=== PATIENT | female | born 2000 | race Caucasian/White ===

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

== ENCOUNTER 2021-03-14 11:30 | Emergency (ER) | payer BC, OTHER, SELFPAY ==
[2021-03-14 12:09] VITALS: BP 154/63; PULSE 102; RESP 16; TEMP 36.5; O2SAT 96; BMI 30.9
--- NOTE | 2021-03-14 14:38 | ED_ITS ---
HPI - Female Genitourinary General Chief complaint: Urogenital-Female Stated complaint: LEFT SIDE ABD/BACK PAIN. HURTS TO TOUCH Time Seen by Provider: 03/14/21 14:00 Source: patient Mode of arrival: Ambulatory Limitations: no limitations History of Present Illness HPI Narrative: This is a 20-year-old female with left-sided flank pain. And suprapubic pain for approximately a week. Patient states she did not see anyone because she was not able to come to the emergency department she was out of town and did not feel she had other options that her insurance would cover. Patient denies any fevers she has felt warm she has had nausea but no active vomiting. She has any chest pain or shortness of breath. No cold cough or congestion. She has not had any new GI symptoms such as diarrhea constipation. No black or bloody stools. She has had some frequency but no dysuria. She has not any vaginal bleeding or discharge. She has had prior UTIs in the past and states this feels similar. Patient denies any daily medications. She denies any prior surgeries. No allergies to medications. Related Data Home Medications Medication Instructions Recorded Confirmed acetaminophen 650 mg 650 mg PO Q8HP PRN #0 08/13/16 tablet,extended release Previous Rx's Medication Instructions Recorded dextromethorphan polistirex 30 30 mg PO Q12H #148 ml 08/13/16 mg/5 mL oral susp ext.release 12hr (Delsym 12 hour) nitrofurantoin 100 mg PO BID 7 Days #0 cap 08/13/16 monohydrate/macrocrystals 100 mg capsule (Macrobid) ibuprofen 800 mg tablet 800 mg PO TID PRN #20 tab 04/11/18 ciprofloxacin HCl 500 mg tablet 500 mg PO BID #28 tab 03/14/21 ondansetron 4 mg disintegrating 4 mg PO Q6H PRN #5 tab 03/14/21 tablet tramadol 50 mg tablet (Ultram) 50 mg PO Q6H PRN #10 tab 03/14/21 Allergies Allergy/AdvReac Type Severity Reaction Status Date / Time No Known Drug Allergies Allergy Verified 03/14/21 12:08 Review of Systems Review of Systems ROS Unobtainable: All systems reviewed & are unremarkable except as noted in HPI and below Patient History Medical History (Updated 03/14/21 @ 14:38 by Hailey Kerns DO) Asthma tobacco type: vaping alcohol intake frequency: a few times a week Substance Use Type: does not use Exam Narrative Exam Narrative: GENERAL: Alert and oriented x three, female in [id number] distress. HEENT: Head normocephalic, atraumatic, EOMI, pupils reactive, face symmetric, moist mucous membranes NECK: Supple, full range of motion CARDIOVASCULAR: Regular rate and rhythm without murmurs, rubs or gallops. RESPIRATORY: Breath sounds equal bilaterally, no wheezes rales or rhonchi. ABDOMEN: Soft, moderate lower abdominal discomfort on the left. Normoactive bowel sounds all 4 quadrants. No guarding or rebound, rigidity, no mass : Positive for left CVA tenderness EXTREMITIES: Normal range of motion, no clubbing or edema. Neurovascularly intact NEUROLOGICAL: Cranial nerves II through XII grossly intact. Moving all extremities SKIN: Warm, dry, no petechiae, no rashes or lesions. Initial Vital Signs Initial Vital Signs: Vital Signs Temperature 97.7 F 03/14/21 12:09 Pulse Rate 102 H 03/14/21 12:09 Respiratory Rate 16 03/14/21 12:09 Blood Pressure 154/63 H 03/14/21 12:09 Pulse Oximetry 96 03/14/21 12:09 Course Orders Ordered: Discontinued Medications Ciprofloxacin (Ciprofloxacin 250 Mg Tablet) 500 mg PO NOW ONE Stop: 03/14/21 14:35 Last Admin: 03/14/21 14:42 Dose: 500 mg Documented by: WILLIMA Ketorolac Tromethamine (Ketorolac 30 Mg/Ml Vial) 30 mg IM NOW ONE Stop: 03/14/21 14:35 Last Admin: 03/14/21 14:42 Dose: 30 mg Documented by: WILLIAM Vital Signs Vital signs: Vital Signs - 8 hr 03/14/21 15:05 Temperature 98.4 F Pulse Rate 83 Respiratory Rate 16 Blood Pressure 102/58 L Pulse Oximetry 99 MDM - Female Genitourinary Lab Data Labs: Point of Care Testing Test Results Negative Urine Dip Bedside Urine Glucose Negative Bedside Urine Bilirubin - Negative Bedside Urine Ketone - Negative Urine Specific [place] 1.025 Bedside Urine Occult Blood ++ Bedside Urine pH 6 Bedside Urine Protein ++ 100 Bedside Urine Urobilinogen - Negative Bedside Urine Nitrite + Positive Bedside Urine Leukocytes ++ 125 Esterase MDM Narrative Medical decision making narrative: This is a 20-year-old female with a clinical exam positive for left flank pain, positive UTI with nitrates and symptoms consistent with pyelonephritis. Patient was given a shot of Toradol for pain control. Her 1st dose of antibiotics here in the department which she was able to tolerate. 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 We discussed she should feel better in the next 12-24 hours but not necessarily normal. She was asked to return if she was worsening or not able to keep her antibiotics down. All questions answered. Patient was also given a short course antinausea medicine and pain medication she is quite uncomfortable. Discharge Plan Departure Patient Disposition: Home Clinical Impression: Pyelonephritis Instructions: DI for Kidney Infection Activity Restrictions/Additional Instructions: Follow-up in the next 2-3 days for recheck if your symptoms are not improving. Take antibiotics until completely gone. Take antinausea medication as needed. Take pain medication as prescribed. This medication can make you sleepy do not drive, perform hazardous activities or make any major decisions while taking it. This medication will make you constipated please take a stool softener once to twice daily until stools are soft and regular. You may take ibuprofen up to 800 mg every 8 hours with this as well as Tylenol up to a 1000 mg every 8 hours. Prescription to [facility] in [place]. Return for fevers, rapidly worsening flank, abdominal pain, persistent vomiting, lightheadedness or passing out, black or bloody stools, inability urinate or other new or concerning symptoms. Prescriptions: New ciprofloxacin HCl 500 mg tablet 500 mg PO BID Qty: 28 RF: 0 tramadol [Ultram] 50 mg tablet 50 mg PO Q6H PRN (Reason: pain) Qty: 10 RF: 0 ondansetron 4 mg tablet,disintegrating 4 mg PO Q6H PRN (Reason: nausea and vomiting) Qty: 5 RF: 0 No Action acetaminophen 650 MG tablet extended release 650 mg PO Q8HP PRNQty: 0 RF: 0 nitrofurantoin monohyd/m-cryst [Macrobid] 100 MG capsule 100 mg PO BID 7 Days Qty: 0 RF: 0 dextromethorphan polistirex [Delsym 12 hour] 30 MG/5 ML suspension,extended rel 12 hr 30 mg PO Q12H Qty: 148 RF: 0 ibuprofen 800 mg tablet 800 mg PO TID PRN (Reason: pain) Qty: 20 RF: 0
[2021-03-14] MEDS: CIPROFLOXACIN 250 MG TABLET 500 MG PO (14:42)
[2021-03-14] MEDS: KETOROLAC 30 MG/ML VIAL IM (14:42)
[2021-03-14 15:05] VITALS: BP 102/58; PULSE 83; RESP 16; TEMP 36.9; O2SAT 99
== END 2021-03-14 15:13 | disposition home or self-care (01) ==
PROVIDERS: Emergency Provider Emergency Medicine
DX: N12 Tubulo-interstitial nephritis, not specified as acute or chronic (principal)
CPT/HCPCS: 81003; 81025; 96372; 99283; J1885

== ENCOUNTER 2021-06-15 12:43 | Emergency (ER) | payer BC, OTHER, SELFPAY ==
[2021-06-15] VITALS (12 sets, daily range): BP systolic 81–124; BP diastolic 51–82; PULSE 83–104; RESP 16–18; TEMP 36.3; O2SAT 97–100; BMI 33.3
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
[2021-06-15] MEDS: SODIUM CHLORIDE 0.9% 1,000 ML 1000 ML IV (15:27)
[2021-06-15] MEDS: diphenhydrAMINE 50 MG/ML VIAL 25 MG IV (15:27)
[2021-06-15] MEDS: DEXAMETHASONE 10 MG/ML VIAL IV (15:27)
[2021-06-15] MEDS: KETOROLAC 30 MG/ML VIAL IV (15:27)
[2021-06-15] MEDS: METOCLOPRAMIDE 10 MG/2 ML INJ IV (15:28)
[2021-06-15] MEDS: ACETAMINOPHEN 325 MG TABLET 975 MG PO (15:28)
== END 2021-06-15 17:07 | disposition home or self-care (01) ==
PROVIDERS: Emergency Provider Nurse Practitioner Critical Care Medicine
DX: S06.0X0A Concussion without loss of consciousness, initial encounter (principal); W22.8XXA Striking against or struck by other objects, initial encounter
CPT/HCPCS: 36415; 81003; 81025; 96361; 96374; 96375; 99284; J1100; J1200; J1885; J2765

== ENCOUNTER 2024-10-25 19:41 | Emergency (ER) | payer BC, SELFPAY ==
[2024-10-25] VITALS (33 sets, daily range): BP systolic 107–238; BP diastolic 55–98; PULSE 67–111; RESP 12–33; O2SAT 97–100; BMI 29.4
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
--- NOTE | 2024-10-25 19:59 | EKG_ITS ---
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
[2024-10-25] MEDS: ALBUTEROL 2.5 MG/3 ML NEB (ADULT) INH (20:03)
[2024-10-25 20:11] LABS: Add Manual Diff / Slide Review NO; Basophils Absolute Auto 0 /uL (0-100); Basophils Percent Auto 0.4 % (0-2); Eosinophils Absolute Auto 100 /uL (0-450); Hematocrit 37.2 % (36-46); Hemoglobin 12.7 g/dL (12.0-16.0); Lymphocytes Absolute Auto 2500 /uL (1100-4500); Lymphocytes Percent Auto 28.2 % (25-40); Mean Corpuscular HGB Conc 34.1 % (30-36); Mean Corpuscular Hemoglobin 31.1 PG (26-34); Mean Corpuscular Volume 91.2 fL (80-100); Monocytes Absolute Auto 500 /uL (0-900); Monocytes Percent Auto 5.8 % (3-14); Neutrophils Absolute Auto 5700 /uL (1500-7000); Neutrophils Percent Auto 64.6 % (50-75); Platelet Count 277 X10^3/uL (150-400); Red Blood Cell Count 4.08 X10^6/uL (4.0-5.2); Red Cell Distribution Width 13.3 % (11.6-14.8); White Blood Cell Count 8.8 X10^3/uL (4.5-11.0)
--- NOTE | 2024-10-25 20:17 | PC.NURSE ---
initial co: 3 repeat at 45min: 1
[2024-10-25 20:18] LABS: Lactate (Lactic Acid) 0.6 mmol/L (0.7-2.1)
[2024-10-25 20:19] LABS: Alanine Aminotransferase 35 IU/L (<35); Albumin 4.4 g/dL (3.5-5.0); Albumin Globulin Ratio 1.8 (1.0-2.8); Alkaline Phosphatase 87 U/L (38-126); Aspartate Aminotransferase 43 IU/L (14-36); BUN Creatinine Ratio 17.5 (6-22); Bilirubin Total 0.4 mg/dL (0.2-1.3); Blood Urea Nitrogen 14 mg/dL (7-17); Calcium 9.1 mg/dL (8.4-10.2); Carbon Dioxide 28 mmol/L (22-32); Chloride 102 mmol/L (98-107); Creatine Kinase 188 U/L (30-135); Estimated Glomerular Filt Rate > 60 mL/min (>60); Ethanol (ETOH) < 10 mg/dL; Globulin 2.4 g/dL (1.7-4.1); Glucose 102 mg/dL (70-100); HEMOLYSIS < 15 (0-50); Potassium 4.2 mmol/L (3.4-5.1); Sodium 138 mmol/L (137-145); Total Protein 6.8 g/dL (6.3-8.2)
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
[2024-10-25] MEDS: BACITRACIN OINT 0.9 GM PCKT 2 APPLIC TOP (21:33)
--- NOTE | 2024-10-25 21:58 | PC.NURSE ---
Patient's left hand on arrival was the worst burn. Her index and thumb on her left hand have red skin with some blisters. all other morrow were small in size, less than 1cm around.
[2024-10-25] MEDS: ACETAMINOPHEN 325 MG TABLET 975 MG PO (22:47)
[2024-10-25] MEDS: IBUPROFEN 400 MG TABLET 800 MG PO (22:47)
== END 2024-10-25 22:58 | disposition home or self-care (01) ==
PROVIDERS: Emergency Provider Emergency Medicine
DX: T23.222A Burn of second degree of single left finger (nail) except thumb, initial encounter (principal); T59.811A Toxic effect of smoke, accidental (unintentional), initial encounter; I49.8 Other specified cardiac arrhythmias
CPT/HCPCS: 71045; 80053; 80320; 82550; 83605; 85025; 88740; 93005; 94640; 99284; J7613